=== PATIENT | female | born 1960 | race Caucasian/White ===

== ENCOUNTER 2024-06-12 18:11 | Emergency (ER) | payer MEDICARE ==
[~2024-06-12] VITALS: Ht 167.6 cm; Wt 104.3 kg
--- NOTE | 2024-06-12 18:31 | NUR ---
CALLED PT 3 TIMES, NO ANSWER
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
[2024-06-12] MEDS: ketOROlac 15MG/ML VIAL (15MG/ML) IM ONE (20:13)
--- NOTE | 2024-06-12 21:39 | HMCIMG ---
SHOULDER COMP 2+VWS RT HISTORY: Injury COMPARISON: None TECHNIQUE: 2 images of right shoulder were obtained. FINDINGS: Hill-Sachs deformity is seen. There is anterior dislocation of right shoulder. Degenerative changes are seen. IMPRESSION: 1. Findings as described above.
[2024-06-13] MEDS: MIDAZOLAM HCL 1 MG/ML 2ML VIAL IVP ONE (02:09)
[2024-06-13] MEDS: FENTanyl CITRate PF 50 MCG/1 ML 2ML VIAL IVP ONE (02:09)
--- NOTE | 2024-06-13 02:10 | NUR ---
SEE SEDATION FLOW SHEET.
[2024-06-13] MEDS ORDERED: OXYC-38 PO (03:02)
[2024-06-13 04:34] VITALS: BP 127/62; PULSE 55; RESP 16; TEMP 98; O2SAT 99
--- NOTE | 2024-06-13 10:04 | HMCIMG ---
RIGHT SHOULDER RADIOGRAPHS - 1 VIEWS INDICATION: Postreduction COMPARISON: None FINDINGS/IMPRESSION: Appropriate glenohumeral alignment, without radiographic evidence for fracture.
== END 2024-06-13 05:29 | disposition home or self-care (01) ==
LOC: EDH 18:11
DX: S43.014A Anterior dislocation of right humerus, initial encounter (principal); V19.9XXA Pedal cyclist (driver) (passenger) injured in unspecified traffic accident, initial encounter; Y93.55 Activity, bike riding; Y92.89 Other specified places as the place of occurrence of the external cause; Y99.8 Other external cause status
CPT/HCPCS: 99285; 23650; 73030 ×2; 99152; 96372; J1885; J3010 ×2; J2250 ×3; 29105